=== PATIENT | female | born 1960 | race Caucasian/White ===

== ENCOUNTER → 2024-08-06 11:36 | Outpatient (REF) | payer OTHER, SELFPAY ==
[2024-08-06 12:20] VITALS: BP 117/77; BP_SYST 78
== END ==
LOC: RADI 11:36
PROVIDERS: ATTENDING PHYSICIAN Nurse Practitioner Family; FAMILY PHYSICIAN Family Medicine
DX: E04.1 Nontoxic single thyroid nodule (principal)
CPT/HCPCS: 88173; 10005

== ENCOUNTER → 2025-02-23 09:31 | Outpatient (REF) | payer OTHER, SELFPAY | LOC: RAD 09:31 | PROVIDERS: ATTENDING PHYSICIAN Nurse Practitioner Family; FAMILY PHYSICIAN Family Medicine | DX: E04.1 Nontoxic single thyroid nodule (principal) | CPT/HCPCS: 76536 ==